=== PATIENT | female | born 1985 | race Two or more races ===

== ENCOUNTER 2021-09-14 17:51 | Emergency (ER) | payer MEDICAID, OTHER ==
[~2021-09-14] VITALS: Ht 154.9 cm; Wt 65.8 kg
[2021-09-14 18:48] LABS: Basophils # (auto) 0.1 10 ^3/uL (0-0.2); Hemoglobin 12.5 g/dL (12.2-16.2); Monocytes # (auto) 0.5 10 ^3/uL (0-1.3); White Blood Cell 7.9 10^3/uL (4.4-10.8)
[2021-09-14 18:49] LABS: Basophils % (auto) 1.2 % (0.0-2.0); Eosinophils # (auto) 0.1 10 ^3/uL (0-0.8); Eosinophils % (auto) 1.3 % (0.0-7.0); Hematocrit 36.3 % (36.0-46.0); Lymphocytes % (auto) 12.1 % (10.0-50.0); Mean Corpuscular Hemoglobin 27.2 pg (28.0-32.0); Mean Corpuscular Hgb Conc. 34.3 g/dL (32.0-36.0); Mean Corpuscular Volume 79.4 fL (80.0-100.0); Monocytes % (auto) 5.9 % (0.0-12.0); Neutrophils # (auto) 6.3 10 ^3/uL (1.6-8.6); Neutrophils % (auto) 79.5 % (37.0-80.0); Nucleated Red Blood Cells % 0.1 %; Red Blood Cells 4.57 10^6/uL (4.0-5.20); Red Cell Distribution Width 14.3 % (11.8-14.3)
[2021-09-14 19:03] LABS: Urine Bacteria FEW /hpf (None Seen); Urine Blood Negative /uL (Negative); Urine Mucus FEW (None Seen); Urine Specific Gravity 1.034 (1.001-1.035); Urine WBC 22 /hpf (0 - 5)
[2021-09-14 19:04] LABS: Albumin 3.6 g/dL (3.4-5.0); Calcium 8.7 mg/dL (8.5-10.1); Potassium 3.7 mmol/L (3.5-5.1)
[2021-09-14 19:07] LABS: BUN/Creatinine Ratio 29.5; Bilirubin, Total 0.3 mg/dL (0.2-1.0); Total Protein 7.1 g/dL (6.4-8.2)
[2021-09-15] MEDS ORDERED: CEFTRIAXONE SODIUM 2 GM in D5W 5% 50 ML IV ONE (00:15)
[2021-09-15] MEDS ORDERED: SODIUM CHLORIDE 0.9% 1,000 ML IV ONE (01:15)
[2021-09-15] MEDS ORDERED: CEPH-509 PO (02:24)
[2021-09-15] MEDS ORDERED: cefTRIAXone 1GM/50ML D5W 100 ML IV ONE (02:41)
[2021-09-15 03:00] VITALS: BP 93/52
[2021-09-15] MEDS ORDERED: ACETAMINOPHEN 325 MG TAB PO ONE (03:00)
== END 2021-09-15 03:50 | disposition home or self-care (01) ==
LOC: ER 17:51
DX: N39.0 Urinary tract infection, site not specified (principal); E86.0 Dehydration; Z32.02 Encounter for pregnancy test, result negative
CPT/HCPCS: 36415; 80053; 81001; 81025; 85025; 93005; 96361; 96365; 99284; J0696; J7030; J7060

== ENCOUNTER 2022-09-05 18:54 | Inpatient (IN) | payer MEDICAID ==
[~2022-09-05] VITALS: Ht 152.4 cm; Wt 72.3 kg
[~2022-09-05 18:54] MED LIST: CEPH-509 PO
[2022-09-05 19:37] LABS: Basophils # (auto) 0 10 ^3/uL (0-0.2); Basophils % (auto) 0.2 % (0.0-2.0); Eosinophils # (auto) 0.1 10 ^3/uL (0-0.8); Eosinophils % (auto) 1.4 % (0.0-7.0); Hematocrit 37.6 % (36.0-46.0); Hemoglobin 12.7 g/dL (12.2-16.2); Lymphocytes # (auto) 1.2 10 ^3/uL (0.4-5.4); Lymphocytes % (auto) 16.2 % (10.0-50.0); Mean Corpuscular Hemoglobin 27.3 pg (28.0-32.0); Mean Corpuscular Hgb Conc. 33.7 g/dL (32.0-36.0); Mean Corpuscular Volume 81.1 fL (80.0-100.0); Monocytes # (auto) 0.4 10 ^3/uL (0-1.3); Neutrophils # (auto) 5.8 10 ^3/uL (1.6-8.6); Neutrophils % (auto) 77.2 % (37.0-80.0); Nucleated Red Blood Cells % 0.1 %; Red Blood Cells 4.64 10^6/uL (4.0-5.20); Red Cell Distribution Width 13.4 % (11.8-14.3); White Blood Cell 7.5 10^3/uL (4.4-10.8)
[2022-09-05 19:54] LABS: Albumin 3.5 g/dL (3.4-5.0); BUN/Creatinine Ratio 33.9; Calcium 8.8 mg/dL (8.5-10.1); Potassium 3.6 mmol/L (3.5-5.1)
[2022-09-05 19:57] LABS: Bilirubin, Total 0.2 mg/dL (0.2-1.0); Total Protein 7.1 g/dL (6.4-8.2)
[2022-09-05] MEDS ORDERED: HYDROcodone-ACET 10/325MG TAB PO ONE (20:30)
[2022-09-05] MEDS ORDERED: MORPHINE SULFATE INJ 2 MG/ml SYRG IV PRN (22:15)
[2022-09-05] MEDS ORDERED: NITROGLYCERIN 0.4 MG SL TAB SL PRN (22:15)
[2022-09-05] MEDS ORDERED: ACETAMINOPHEN 325 MG TAB PO PRN (22:15)
[2022-09-05] MEDS ORDERED: ONDANSETRON HCL 4 MG/2 ML VIAL IV PRN (22:15)
[2022-09-06 05:49] LABS: Potassium 3.6 mmol/L (3.5-5.1)
[2022-09-06] MEDS: PANTOPRAZOLE 40 MG TAB PO SCH (09:53)
[2022-09-06 20:57] LABS: Urine Amorphous Crystal FEW /hpf (None Seen); Urine Bacteria MOD /hpf (None Seen); Urine Blood Negative /uL (Negative); Urine Specific Gravity 1.024 (1.001-1.035); Urine WBC 19 /hpf (0 - 5)
[2022-09-06 21:55] VITALS: BP 113/68
[2022-09-06 22:40] VITALS: BP 113/68
[2022-09-06] MEDS ORDERED: INFLUENZA QUAD 2022-2023 0.5 ML SYRG IM ONE (22:45)
[2022-09-07 05:00] VITALS: BP 100/66
[2022-09-07 09:00] VITALS: BP 111/73
[2022-09-07] MEDS: PANTOPRAZOLE 40 MG TAB PO SCH (10:01)
[2022-09-07 13:00] VITALS: BP 108/67
[2022-09-07 16:31] VITALS: BP 107/76
[2022-09-07 22:00] VITALS: BP 121/71
[2022-09-08 05:00] VITALS: BP 115/71
[2022-09-08 06:00] VITALS: BP 112/57
[2022-09-08] MEDS: PANTOPRAZOLE 40 MG TAB PO SCH (08:53)
[2022-09-08 13:00] VITALS: BP 112/76
[2022-09-08 15:39] VITALS: BP 112/76
[2022-09-08 16:42] VITALS: BP 108/75
== END 2022-09-08 17:47 | disposition home or self-care (01) | DRG 201 ==
LOC: ER 18:54 → TELE 22:15 → TELE-WESTW 09-06 21:11
PROVIDERS: ADMIT Nurse Practitioner; ATTEND Internal Medicine Pulmonary Disease
DX: R00.1 Bradycardia, unspecified (principal); E66.01 Morbid (severe) obesity due to excess calories; Z20.822 Contact with and (suspected) exposure to COVID-19; Z68.31 Body mass index [BMI] 31.0-31.9, adult
CPT/HCPCS: 36415; 70450; 71046; 80048; 80053; 81001; 81025; 83735; 84443; 85025; 85379; 87426; 93005; 93017; 93306; G0378